=== PATIENT | female | born 1970 | race Hispanic/Latino ===

== ENCOUNTER 2018-07-15 08:00 | Emergency (ER) | payer MEDICAID, OTHER ==
[2018-07-15 08:11] VITALS: O2SAT 96
--- NOTE | 2018-07-15 08:42 | C.PDOC ---
History Of Present Illness 47 year old female with PMHx of asthma presents to the ED complaining of sore throat, nasal congestion, and cough. Denies any fever, chills, ear pain, n/v/d, or any other associated symptoms. Reports using her inhaler at home with no relief. Time Seen by Provider: 07/15/18 08:10 Chief Complaint (Nursing): Cough, Cold, Congestion History Per: Patient History/Exam Limitations: no limitations Current Symptoms Are (Timing): Still Present Location Of Pain: Throat Associated Symptoms: Sore Throat, Cough, Nasal Congestion. denies: Fever, Chills Ear Symptoms: Bilateral: None Severity: Mild Past Medical History Reviewed: Historical Data, Nursing Documentation, Vital Signs Vital Signs: Last Vital Signs Temp 97.6 F 07/15/18 08:07 Pulse 84 07/15/18 08:07 Resp 18 07/15/18 08:07 BP 122/83 07/15/18 08:07 Pulse Ox 96 07/15/18 08:07 - Medical History PMH: Asthma, HTN, Seizures Denies: Diabetes, Hepatitis, HIV, Sexually Transmitted Disease Surgical History: No Surg Hx - [facility] Procedures DETOXIFICATION SERVICES FOR SUBSTANCE ABUSE TREATMENT (07/04/18) GROUP UTILITY MECHANIC SUPERVISOR FOR SUBSTANCE ABUSE TREATMENT, PSYCHOEDUCATION (07/04/18) GROUP UTILITY MECHANIC SUPERVISOR FOR SUBSTANCE ABUSE, COGNITIVE BEHAVIORAL (07/04/18) GROUP PSYCHOTHERAPY (07/04/18) INDIV PSYCHOTHERAPY FOR SUBSTANCE ABUSE TREATMENT, SUPPORT (07/04/18) INDIV PSYCHOTHERAPY FOR SUBSTANCE ABUSE, COGNITIV BEHAVIORAL (07/04/18) INDIV PSYCHOTHERAPY FOR SUBSTANCE ABUSE, PSYCHOEDUCATION (07/04/18) INDIVIDUAL PSYCHOTHERAPY, COGNITIVE-BEHAVIORAL (07/04/18) INDIVIDUAL PSYCHOTHERAPY, SUPPORTIVE (07/04/18) Family History: States: No Known Family Hx - Social History Hx Alcohol Use: No (denied) Hx Substance Use: Yes (heroin) - Immunization History Hx Tetanus Toxoid Vaccination: No Hx Influenza Vaccination: No Hx Pneumococcal Vaccination: No Review Of Systems Except As Marked, All Systems Reviewed And Found Negative. Constitutional: Negative for: Fever, Chills ENT: Positive for: Nose Congestion, Throat Pain Respiratory: Positive for: Cough, Wheezing Physical Exam - Physical Exam Appears: Non-toxic Skin: Warm, Dry, No Rash Head: Normacephalic Eye(s): bilateral: Normal Inspection Ear(s): Bilateral: Normal Nose: Normal Oral Mucosa: Moist Throat: Erythema, No Exudate Neck: Normal ROM, Supple Chest: Symmetrical Cardiovascular: Rhythm Regular Respiratory: No Rales, No Rhonchi, Wheezing (expiratory wheezing b/l) Gastrointestinal/Abdominal: Soft, No Tenderness Extremity: Normal ROM Neurological/Psych: Oriented x3, Normal Speech Gait: Steady ED Course And Treatment - Laboratory Results Urine POC: Negative O2 Sat by Pulse Oximetry: 96 (RA) Pulse Ox Interpretation: Normal - Radiology CXR: Interpreted by Me CXR Interpretation: Yes: No Acute Disease Progress Note: Treated with duoneb x 3 and prednisone 60 mg PO. On re- evaluation lungs few wheeze feeling better, in no distress Reassessment Condition: Improved Medical Decision Making Medical Decision Making: Plan - CXR - Neb treatment - Prednisone 60mg PO Disposition Counseled Patient/Family Regarding: Studies Performed, Diagnosis, Need For Followup, Rx Given - Disposition Referrals: [facility] [Outside] [facility] [Outside] Disposition: HOSPITALIZED Disposition Time: 10:00 Condition: STABLE Additional Instructions: Follow up with PMD or clinic fopr further evaluation Prescriptions: Albuterol HFA [Ventolin HFA 90 mcg/actuation (8 g)] 2 puff IH [id number] PRN #1 unit PRN Reason: Shortness Of Breath Prednisone [Deltasone] 40 mg PO DAILY #8 tablet Instructions: Upper Respiratory Infection (ED) Forms: [employer] (Barbadian) - POA Present On Arrival: None - Clinical Impression Clinical Impression: Upper respiratory infection, Asthma attack - PA / GANG HEAD SAW OPERATOR / Resident Statement MD/DO has reviewed & agrees with the documentation as recorded. - Scribe Statement The provider has reviewed the documentation as recorded by the Scribe Katerin Adkins All medical record entries made by the Brandonibdayron were at my direction and personally dictated by me. I have reviewed the chart and agree that the record accurately reflects my personal performance of the history, physical exam, medical decision making, and the department course for this patient. I have also personally directed, reviewed, and agree with the discharge instructions and disposition.
[2018-07-15] MEDS: Albuterol-Ipratrop 3 mg / 0.5 (3 ml) UD IH SCH (09:51)
--- NOTE | 2018-07-15 10:06 | RAD ---
Date of service: 07/15/2018 HISTORY: SOB COMPARISON: No prior. TECHNIQUE: Chest PA and lateral FINDINGS: LUNGS: No active pulmonary disease. PLEURA: No significant pleural effusion identified. No pneumothorax apparent. CARDIOVASCULAR: No significant aortic atherosclerotic calcification present. Normal cardiac size. No pulmonary vascular congestion. OSSEOUS STRUCTURES: Minor multilevel degenerative spondylosis of the thoracic spine. VISUALIZED UPPER ABDOMEN: Normal. OTHER FINDINGS: In situ bilateral breast implants. IMPRESSION: No active disease.
[2018-07-15 10:18] VITALS: BP 118/83; PULSE 95; RESP 20; TEMP 97.7
== END 2018-07-15 10:18 | disposition home or self-care (01) ==
LOC: C.ER 08:00
DX: J45.909 Unspecified asthma, uncomplicated (principal); J06.9 Acute upper respiratory infection, unspecified; I10 Essential (primary) hypertension

== ENCOUNTER 2018-07-16 02:03 | Emergency (ER) | payer MEDICAID, OTHER ==
[2018-07-16] MEDS ORDERED: Albuterol-Ipratrop 3 mg / 0.5 (3 ml) UD ONE ×2 (02:11→02:24)
--- NOTE | 2018-07-16 02:21 | C.PDOC ---
History Of Present Illness 47 year old female presents to the ED c/o SOB and wheezing. Patient was seen at the ED yesterday for similar complaints, however she states symptoms today worse due to some emotional distress. Patient reports she was kicked out of her house. Patient denies fever, chills,sore throat, CP, palpitations, nausea, vomit, diarrhea, recent travel, sick contacts. Time Seen by Provider: 07/16/18 02:21 Chief Complaint (Nursing): Shortness Of Breath History Per: Patient History/Exam Limitations: no limitations Onset/Duration Of Symptoms: Days Current Symptoms Are (Timing): Still Present Initiating Event: Upper Respiratory Illness, Emotionaly Upset Quality: "Pain" Current Respiratory Medications: See Home Med List Reports Recently: Seen In ED (07/15/18) Recent travel outside of the [place]: No Additional History Per: Patient Past Medical History Reviewed: Historical Data, Nursing Documentation, Vital Signs Vital Signs: Last Vital Signs Temp 98.2 F 07/16/18 02:13 Pulse 98 H 07/16/18 02:13 Resp 20 07/16/18 02:13 BP 140/90 07/16/18 02:13 Pulse Ox 98 07/16/18 02:13 - Medical History PMH: Asthma, HTN, Seizures Denies: Diabetes, Hepatitis, HIV, Sexually Transmitted Disease Surgical History: No Surg Hx - [facility] Procedures DETOXIFICATION SERVICES FOR SUBSTANCE ABUSE TREATMENT (07/04/18) GROUP REPORTING LEAD FOR SUBSTANCE ABUSE TREATMENT, PSYCHOEDUCATION (07/04/18) GROUP REPORTING LEAD FOR SUBSTANCE ABUSE, COGNITIVE BEHAVIORAL (07/04/18) GROUP PSYCHOTHERAPY (07/04/18) INDIV PSYCHOTHERAPY FOR SUBSTANCE ABUSE TREATMENT, SUPPORT (07/04/18) INDIV PSYCHOTHERAPY FOR SUBSTANCE ABUSE, COGNITIV BEHAVIORAL (07/04/18) INDIV PSYCHOTHERAPY FOR SUBSTANCE ABUSE, PSYCHOEDUCATION (07/04/18) INDIVIDUAL PSYCHOTHERAPY, COGNITIVE-BEHAVIORAL (07/04/18) INDIVIDUAL PSYCHOTHERAPY, SUPPORTIVE (07/04/18) Family History: States: Unknown Family Hx - Social History Hx Alcohol Use: No (denied) Hx Substance Use: Yes (heroin) - Immunization History Hx Tetanus Toxoid Vaccination: No Hx Influenza Vaccination: No Hx Pneumococcal Vaccination: No Review Of Systems Constitutional: Negative for: Fever, Chills Cardiovascular: Negative for: Chest Pain Respiratory: Positive for: Shortness of Breath, Wheezing. Negative for: Cough, Sputum Gastrointestinal: Negative for: Nausea, Vomiting, Abdominal Pain Skin: Negative for: Rash Neurological: Negative for: Weakness, Numbness, Headache, Dizziness Physical Exam - Physical Exam Appears: Non-toxic, No Acute Distress Skin: Warm, Dry Head: Normacephalic Eye(s): bilateral: Normal Inspection Oral Mucosa: Moist Throat: No Erythema, No Exudate Neck: Supple Chest: Symmetrical Cardiovascular: Rhythm Regular Respiratory: No Rales, No Rhonchi, Wheezing (scattered), Other (speaking in complete sentences) Gastrointestinal/Abdominal: Soft, No Tenderness, No Guarding, No Rebound Extremity: Bilateral: Atraumatic, Normal Color And Temperature, Normal ROM Neurological/Psych: Oriented x3, Normal Speech, Normal Cognition Gait: Steady ED Course And Treatment O2 Sat by Pulse Oximetry: 98 (ON RA) Pulse Ox Interpretation: Normal Progress Note: Plan: - Duoneb. - Prednisone 40 mg PO Reevaluation Time: 05:11 Reassessment Condition: Improved Disposition Counseled Patient/Family Regarding: Studies Performed, Diagnosis, Need For Followup - Disposition Disposition: HOME/ ROUTINE Disposition Time: 02:21 Condition: FAIR Additional Instructions: Please continue your medications Instructions: Asthma, Adult (DC) Forms: [employer] (Turkish) - Clinical Impression Clinical Impression: Asthma exacerbation, Anxiety - Scribe Statement The provider has reviewed the documentation as recorded by the Scribe David Mckeon All medical record entries made by the Scribe were at my direction and personally dictated by me. I have reviewed the chart and agree that the record accurately reflects my personal performance of the history, physical exam, medical decision making, and the department course for this patient. I have also personally directed, reviewed, and agree with the discharge instructions and disposition.
[2018-07-16] MEDS: Albuterol-Ipratrop 3 mg / 0.5 (3 ml) UD IH SCH ×3 (02:25→02:46)
[2018-07-16 06:17] VITALS: BP 130/89; PULSE 86; RESP 14; TEMP 97.9; O2SAT 96
== END 2018-07-16 06:27 | disposition home or self-care (01) ==
LOC: C.ER 02:03
DX: J45.901 Unspecified asthma with (acute) exacerbation (principal); F41.9 Anxiety disorder, unspecified

== ENCOUNTER 2018-09-26 23:48 | Emergency (ER) | payer BC, OTHER ==
--- NOTE | 2018-09-27 00:26 | C.PDOC ---
History Of Present Illness 48 year old female with a Hx of asthma with no previous admissions or intubations presents with asthma exacerbation and SOB this past week after running out of her inhaler. Patient states she has difficulty walking since she feels SOB secondary to asthma. Denies fever, chills, night sweats, chest pain, or leg swelling. Time Seen by Provider: 09/27/18 00:26 Chief Complaint (Nursing): Shortness Of Breath History Per: Patient History/Exam Limitations: no limitations Onset/Duration Of Symptoms: Days Current Symptoms Are (Timing): Still Present Current Respiratory Medications: See Home Med List Recent travel outside of the [place]: No Past Medical History Reviewed: Historical Data, Nursing Documentation, Vital Signs Vital Signs: Last Vital Signs Temp 98.0 F 09/26/18 23:59 Pulse 83 09/26/18 23:59 Resp 20 09/26/18 23:59 BP 116/74 09/26/18 23:59 Pulse Ox 93 L 09/26/18 23:59 - Medical History PMH: Anxiety, Asthma, Depression, HTN, Post Traumatic Stress Disorder, Seizures Denies: Diabetes, Hepatitis, HIV, Sexually Transmitted Disease - [facility] DETOXIFICATION SERVICES FOR SUBSTANCE ABUSE TREATMENT (07/04/18) GROUP MOLDING SUPERVISOR FOR SUBSTANCE ABUSE TREATMENT, PSYCHOEDUCATION (07/04/18) GROUP MOLDING SUPERVISOR FOR SUBSTANCE ABUSE, COGNITIVE BEHAVIORAL (07/04/18) GROUP PSYCHOTHERAPY (07/04/18) INDIV PSYCHOTHERAPY FOR SUBSTANCE ABUSE TREATMENT, SUPPORT (07/04/18) INDIV PSYCHOTHERAPY FOR SUBSTANCE ABUSE, COGNITIV BEHAVIORAL (07/04/18) INDIV PSYCHOTHERAPY FOR SUBSTANCE ABUSE, PSYCHOEDUCATION (07/04/18) INDIVIDUAL PSYCHOTHERAPY, COGNITIVE-BEHAVIORAL (07/04/18) INDIVIDUAL PSYCHOTHERAPY, SUPPORTIVE (07/04/18) Family History: States: Unknown Family Hx - Social History Hx Alcohol Use: No (denied) Hx Substance Use: Yes (heroin) - Immunization History Hx Tetanus Toxoid Vaccination: No Hx Influenza Vaccination: No Hx Pneumococcal Vaccination: No Review Of Systems Except As Marked, All Systems Reviewed And Found Negative. Respiratory: Positive for: Other (Asthma) Physical Exam - Physical Exam Appears: Non-toxic Skin: Normal Color, Warm, Dry Head: Atraumatic, Normacephalic Eye(s): bilateral: Normal Inspection Oral Mucosa: Moist Neck: Normal, Supple Chest: Symmetrical, No Tenderness Cardiovascular: Rhythm Regular Respiratory: No Accessory Muscle Use, No Rales, No Rhonchi, Wheezing (Bilateral) Gastrointestinal/Abdominal: Soft, No Tenderness Neurological/Psych: Oriented x3, Normal Speech ED Course And Treatment - Laboratory Results Result Diagrams: 09/27/18 00:56 09/27/18 00:56 O2 Sat by Pulse Oximetry: 93 (room air) Medical Decision Making Medical Decision Making: Well appearing 48 yr old F w/ hx of asthma p/w mild asthma exacerbation. speaking in full sentances w/ out distress. Mild wheezes on exam. in NAD. No leg swelling or hx of blood clots. No fever, chills or night sweats . Impression: Asthma 0300 Labs unremarkable lungs cta b/l speaking in full sentences, NAD given inhaler script and meds for home pt agreeable to plan. Also given return indications and followup Disposition - Disposition Referrals: Angela Kolb MD [Staff Provider] - [employer] [facility] [Outside] [facility] [Outside] [facility] [Outside] Disposition: HOME/ ROUTINE Disposition Time: 03:00 Condition: GOOD Prescriptions: RX: Albuterol HFA [Ventolin HFA 90 mcg/actuation (8 g)] 1 puff IH Q3H PRN #1 inhaler PRN Reason: Shortness Of Breath predniSONE [Prednisone] 40 mg PO DAILY 5 Days #10 tab Instructions: Asthma in Adults, Asthma, Adult (DC), Avoiding Asthma Triggers Forms: [employer] (Serbian) - Clinical Impression Clinical Impression: Asthma attack - Scribe Statement The provider has reviewed the documentation as recorded by the Scribe Luciano Chavis All medical record entries made by the Scribe were at my direction and personally dictated by me. I have reviewed the chart and agree that the record accurately reflects my personal performance of the history, physical exam, medical decision making, and the department course for this patient. I have also personally directed, reviewed, and agree with the discharge instructions and disposition.
[2018-09-27] MEDS ORDERED: Albuterol-Ipratrop 3 mg / 0.5 (3 ml) UD ONE ×2 (00:33→01:49)
[2018-09-27] MEDS: Albuterol-Ipratrop 3 mg / 0.5 (3 ml) UD INH PRN ×2 (00:35→01:48)
[2018-09-27] MEDS ORDERED: MethylPREDNISolone 40 mg Vial IVP STA (00:43)
[2018-09-27 00:59] LABS: BASO # 0.1 K/uL (0.0-0.2); EOS # 1.5 K/uL (0.0-0.7); EOS % 14.5 % (0.0-4.0); HEMOGLOBIN 14.2 g/dL (11.0-16.0); LYMPH # 4.2 K/uL (1.0-4.3); LYMPH % 41.5 % (20.0-40.0); MEAN CELL VOLUME 89.7 fL (81.0-99.0); MEAN CORPUSCULAR HEMOGLOBIN 29.3 pg (27.0-31.0); MEAN CORPUSCULAR HGB CONC 32.7 g/dL (33.0-37.0); MEAN PLATELET VOLUME 7.4 fL (7.2-11.7); MONO # 0.6 K/uL (0.0-0.8); MONO % 5.8 % (0.0-10.0); NEUT # 3.7 K/uL (1.8-7.0); NEUT % 37.2 % (50.0-75.0); RBC 4.86 Mil/uL (3.80-5.20); RED CELL DISTRIBUTION WIDTH 14.3 % (11.5-14.5); WHITE BLOOD COUNT 10.1 K/uL (4.8-10.8)
[2018-09-27 01:15] LABS: ALB/GLOB RATIO 1.1 (1.0-2.1); ALBUMIN 3.8 g/dL (3.5-5.0); ALT/SGPT 13 U/L (9-52); AST/SGOT 21 U/L (14-36); BLOOD UREA NITROGEN 17 mg/dL (7-17); CALCIUM 7.9 mg/dl (8.6-10.4); GFR NON-AFRICAN AMERICAN > 60
[2018-09-27 02:15] VITALS: BP 107/63; PULSE 84; RESP 16; TEMP 98.3
[2018-09-27 03:52] VITALS: O2SAT 93
== END 2018-09-27 03:58 | disposition home or self-care (01) ==
LOC: C.ER 23:48
DX: J45.909 Unspecified asthma, uncomplicated (principal)
CPT/HCPCS: 80053; 85025; 96374; 99283; J2920

== ENCOUNTER 2018-10-11 22:19 | Emergency (ER) | payer BC ==
[2018-10-11] MEDS ORDERED: Albuterol-Ipratrop 3 mg / 0.5 (3 ml) UD ONE (22:36)
[2018-10-11] MEDS ORDERED: Albuterol-Ipratrop 3 mg / 0.5 (3 ml) UD INH STA ×3 (22:46→22:47)
[2018-10-11] MEDS ORDERED: Sodium Chloride 0.9% 1,000 ML IV ONE (22:47)
--- NOTE | 2018-10-11 22:48 | C.PDOC ---
History Of Present Illness 48 year old female, whose past medical history includes asthma, presents to the ED for evaluation of cough and congestion which began around two days ago. Patient reports her cough is occasionally productive of white sputum. She states she ran out of her asthma medications a couple days ago. She denies fever, chills. Chief Complaint (Nursing): Shortness Of Breath History Per: Patient History/Exam Limitations: no limitations Onset/Duration Of Symptoms: Days (2) Current Symptoms Are (Timing): Still Present Current Respiratory Medications: See Home Med List Associated Symptoms: Productive Cough (white sputum ). denies: Fever, Chills Past Medical History Reviewed: Historical Data, Nursing Documentation, Vital Signs Vital Signs: Last Vital Signs Temp 97.5 F L 10/11/18 22:25 Pulse 90 10/11/18 22:25 Resp 18 10/11/18 22:25 BP 152/82 H 10/11/18 22:25 Pulse Ox 94 L 10/11/18 22:25 - Medical History PMH: Anxiety, Asthma, Depression, HTN, Post Traumatic Stress Disorder, Seizures Denies: Diabetes, Hepatitis, HIV, Sexually Transmitted Disease Surgical History: No Surg Hx - [facility] Procedures DETOXIFICATION SERVICES FOR SUBSTANCE ABUSE TREATMENT (07/04/18) GROUP CUT OUT PRESS OPERATOR FOR SUBSTANCE ABUSE TREATMENT, PSYCHOEDUCATION (07/04/18) GROUP CUT OUT PRESS OPERATOR FOR SUBSTANCE ABUSE, COGNITIVE BEHAVIORAL (07/04/18) GROUP PSYCHOTHERAPY (07/04/18) INDIV PSYCHOTHERAPY FOR SUBSTANCE ABUSE TREATMENT, SUPPORT (07/04/18) INDIV PSYCHOTHERAPY FOR SUBSTANCE ABUSE, COGNITIV BEHAVIORAL (07/04/18) INDIV PSYCHOTHERAPY FOR SUBSTANCE ABUSE, PSYCHOEDUCATION (07/04/18) INDIVIDUAL PSYCHOTHERAPY, COGNITIVE-BEHAVIORAL (07/04/18) INDIVIDUAL PSYCHOTHERAPY, SUPPORTIVE (07/04/18) Family History: States: Unknown Family Hx - Social History Hx Alcohol Use: No (denied) Hx Substance Use: Yes (heroin (sniff)) - Immunization History Hx Tetanus Toxoid Vaccination: No Hx Influenza Vaccination: No Hx Pneumococcal Vaccination: No Review Of Systems Constitutional: Negative for: Fever, Chills ENT: Positive for: Nose Congestion Respiratory: Positive for: Cough, Sputum (white ) Physical Exam - Physical Exam Appears: Non-toxic, No Acute Distress Skin: Normal Color, Warm, Dry Head: Atraumatic, Normacephalic Eye(s): bilateral: Normal Inspection Oral Mucosa: Moist Neck: Supple Chest: Symmetrical, No Deformity, No Tenderness Cardiovascular: Rhythm Regular, No Murmur Respiratory: No Rales, Rhonchi, Wheezing, Other (slight dyspnea noted ) Extremity: Normal ROM, Capillary Refill (less than 2 seconds ) Neurological/Psych: Oriented x3, Normal Speech, Normal Cognition ED Course And Treatment - Laboratory Results Result Diagrams: 10/11/18 23:36 10/11/18 23:36 O2 Sat by Pulse Oximetry: 94 - Radiology CXR: Interpreted by Me, Viewed By Me CXR Interpretation: Yes: No Acute Disease, Other (normal chest film). No: Infiltrates Progress Note: Bloodwork, CXR, EKG ordered and reviewed. Albuterol INH and IV Fluids given. Disposition Counseled Patient/Family Regarding: Diagnosis - Disposition Referrals: Non [facility] Provider, [Primary Care Provider] - [facility] [Outside] Disposition: HOME/ ROUTINE Disposition Time: 01:56 Condition: STABLE Prescriptions: Albuterol HFA [Ventolin HFA 90 mcg/actuation (8 g)] 2 puff IH [id number] #60 puff Methylprednisolone [Medrol Dose Pack (21 tabs)] 4 mg PO DAILY #21 mg Instructions: Asthma, Adult (DC) Forms: [employer] (Latvian) - POA Present On Arrival: None - Clinical Impression Clinical Impression: Asthma attack - Scribe Statement The provider has reviewed the documentation as recorded by the Scribe (Marychuy De La O) Provider Attestation: All medical record entries made by the Scribe were at my direction and personally dictated by me. I have reviewed the chart and agree that the record accurately reflects my personal performance of the history, physical exam, medical decision making, and the department course for this patient. I have also personally directed, reviewed, and agree with the discharge instructions and disposition.
[2018-10-11 23:40] LABS: BASO # 0.1 K/uL (0.0-0.2); BASO % 1.3 % (0.0-2.0); EOS # 1.4 K/uL (0.0-0.7); EOS % 16.8 % (0.0-4.0); HEMOGLOBIN 14.8 g/dL (11.0-16.0); LYMPH # 2.1 K/uL (1.0-4.3); LYMPH % 25.5 % (20.0-40.0); MEAN CELL VOLUME 91.2 fL (81.0-99.0); MEAN CORPUSCULAR HGB CONC 32.9 g/dL (33.0-37.0); MEAN PLATELET VOLUME 7.4 fL (7.2-11.7); MONO # 0.5 K/uL (0.0-0.8); MONO % 5.6 % (0.0-10.0); NEUT # 4.3 K/uL (1.8-7.0); NEUT % 50.8 % (50.0-75.0); NRBC % 0.1 % (0.0-2.0); RBC 4.94 Mil/uL (3.80-5.20); RED CELL DISTRIBUTION WIDTH 14.3 % (11.5-14.5); WHITE BLOOD COUNT 8.4 K/uL (4.8-10.8)
[2018-10-11 23:53] LABS: ALB/GLOB RATIO 1.1 (1.0-2.1); ALBUMIN 3.9 g/dL (3.5-5.0); ALT/SGPT 9 U/L (9-52); AST/SGOT 26 U/L (14-36); BLOOD UREA NITROGEN 16 mg/dL (7-17); CALCIUM 8.4 mg/dl (8.6-10.4); GFR NON-AFRICAN AMERICAN > 60
[2018-10-12 01:01] VITALS: RESP 19
[2018-10-12] MEDS ORDERED: Albuterol-Ipratrop 3 mg / 0.5 (3 ml) UD INH STA (01:33)
[2018-10-12] MEDS ORDERED: Albuterol-Ipratrop 3 mg / 0.5 (3 ml) UD ONE (02:15)
[2018-10-12 02:29] VITALS: BP 142/89; PULSE 91; TEMP 98; O2SAT 95
--- NOTE | 2018-10-12 10:26 | RAD ---
HISTORY: SOB COMPARISON: Chest x-ray performed 07/15/18 TECHNIQUE: Chest PA and lateral FINDINGS: LUNGS: Hyperinflation. No focal consolidation. Tiny probable calcified granuloma, right midlung zone. Please note that chest x-ray has limited sensitivity for the detection of pulmonary masses. PLEURA: No significant pleural effusion identified. No definite pneumothorax . CARDIOVASCULAR: Heart size appears within normal limits. No atherosclerotic calcification present. OSSEOUS STRUCTURES: Mild degenerative changes. VISUALIZED UPPER ABDOMEN: Unremarkable. OTHER FINDINGS: Bilateral breast implants. IMPRESSION: Hyperinflation. No focal consolidation. Tiny probable calcified granuloma, right midlung zone.
== END 2018-10-12 02:28 | disposition home or self-care (01) ==
LOC: SUPCPDRO 22:19 → C.ER 22:19
DX: J45.909 Unspecified asthma, uncomplicated (principal); I10 Essential (primary) hypertension

== ENCOUNTER 2018-11-21 02:31 | Emergency (ER) | payer SELFPAY ==
[2018-11-21] MEDS ORDERED: Albuterol-Ipratrop 3 mg / 0.5 (3 ml) UD ONE ×2 (02:44→03:26)
[2018-11-21] MEDS: Albuterol-Ipratrop 3 mg / 0.5 (3 ml) UD IH SCH (03:41)
[2018-11-21 05:02] VITALS: BP 102/64; PULSE 87; RESP 16; TEMP 97.9; O2SAT 94
--- NOTE | 2018-11-21 05:07 | C.PDOC ---
History Of Present Illness 48 year old female with a history of asthma presents to the emergency department with complaints of wheezing and cough for the last few days. Patient denies fever, chills, nausea, vomiting, and states that she has never been intubated. As per triage, patient ran out of her inhaler. Patient reported feeling better after receiving breathing treatment at triage. Time Seen by Provider: 11/21/18 03:00 Chief Complaint (Nursing): Shortness Of Breath History Per: Patient History/Exam Limitations: no limitations Onset/Duration Of Symptoms: Days Current Symptoms Are (Timing): Still Present Associated Symptoms: Other (cough, wheezing). denies: Fever, Chills Past Medical History Reviewed: Historical Data, Nursing Documentation, Vital Signs Vital Signs: Last Vital Signs Temp 97.9 F 11/21/18 05:02 Pulse 87 11/21/18 05:02 Resp 16 11/21/18 05:02 BP 102/64 11/21/18 05:02 Pulse Ox 94 L 11/21/18 05:02 - Medical History PMH: Anxiety, Asthma, Depression, HTN, Post Traumatic Stress Disorder, Seizures Denies: Diabetes, Hepatitis, HIV, Sexually Transmitted Disease Surgical History: No Surg Hx - [facility] Procedures DETOXIFICATION SERVICES FOR SUBSTANCE ABUSE TREATMENT (07/04/18) GROUP EXCELLENCE LEADER FOR SUBSTANCE ABUSE TREATMENT, PSYCHOEDUCATION (07/04/18) GROUP EXCELLENCE LEADER FOR SUBSTANCE ABUSE, COGNITIVE BEHAVIORAL (07/04/18) GROUP PSYCHOTHERAPY (07/04/18) INDIV PSYCHOTHERAPY FOR SUBSTANCE ABUSE TREATMENT, SUPPORT (07/04/18) INDIV PSYCHOTHERAPY FOR SUBSTANCE ABUSE, COGNITIV BEHAVIORAL (07/04/18) INDIV PSYCHOTHERAPY FOR SUBSTANCE ABUSE, PSYCHOEDUCATION (07/04/18) INDIVIDUAL PSYCHOTHERAPY, COGNITIVE-BEHAVIORAL (07/04/18) INDIVIDUAL PSYCHOTHERAPY, SUPPORTIVE (07/04/18) Family History: States: No Known Family Hx - Social History Hx Alcohol Use: No (denied) Hx Substance Use: Yes (heroin (sniff)) - Immunization History Hx Tetanus Toxoid Vaccination: No Hx Influenza Vaccination: No Hx Pneumococcal Vaccination: No Review Of Systems Except As Marked, All Systems Reviewed And Found Negative. Constitutional: Negative for: Fever, Chills Cardiovascular: Negative for: Chest Pain Respiratory: Positive for: Cough. Negative for: Shortness of Breath, Wheezing Gastrointestinal: Negative for: Nausea, Vomiting, Abdominal Pain, Diarrhea Physical Exam - Physical Exam Appears: Non-toxic, No Acute Distress Skin: Normal Color, Warm, Dry Head: Atraumatic, Normacephalic Eye(s): bilateral: Normal Inspection, PERRL, EOMI Nose: Normal Oral Mucosa: Moist Neck: Normal, Supple Chest: Symmetrical, No Tenderness Cardiovascular: Rhythm Regular, No Murmur Respiratory: No Rales, Rhonchi (diffuse), Wheezing (expiratory), Other (speaking full sentences) Gastrointestinal/Abdominal: Soft, No Tenderness, No Guarding, No Rebound Extremity: Normal ROM Neurological/Psych: Oriented x3, Normal Speech, Normal Cognition ED Course And Treatment O2 Sat by Pulse Oximetry: 94 (RA) Pulse Ox Interpretation: Abnormal Medical Decision Making Medical Decision Making: Plan: Albuterol Prednisone Disposition Counseled Patient/Family Regarding: Diagnosis, Need For Followup - Disposition [facility] [Outside] Disposition: HOME/ ROUTINE Disposition Time: 05:05 Condition: IMPROVED Additional Instructions: WILMER KEITH, thank you for letting us take care of you today. Your provider was Tari Ayoub MD and you were treated for ASTHMA. The emergency medical care yo u received today was directed at your acute symptoms. If you were prescribed any medication, please fill it and take as directed. It may take several days for your symptoms to resolve. Return to the Emergency Department if your symptoms worsen, do not improve, or if you have any other problems. Please contact your doctor or call one of the physicians/clinics you have been referred to that are listed on the Patient Visit Information form that is included in your discharge packet. Bring any paperwork you were given at discharge with you along with any medications you are taking to your follow up visit. Our treatment cannot replace ongoing medical care by a primary care provider outside of the emergency department. Thank you for allowing the [facility] team to be part of your care today. Prescriptions: predniSONE [Prednisone] 40 mg PO DAILY #10 tab Instructions: Asthma, Adult (DC) Forms: [employer] (Mozambican), General Discharge Instructions - Clinical Impression Clinical Impression: Asthma exacerbation - Scribe Statement The provider has reviewed the documentation as recorded by the Scribe (Jovan Luz) Provider Attestation: All medical record entries made by the Scribe were at my direction and per sonally dictated by me. I have reviewed the chart and agree that the record accurately reflects my personal performance of the history, physical exam, medical decision making, and the department course for this patient. I have also personally directed, reviewed, and agree with the discharge instructions and disposition.
== END 2018-11-21 05:17 | disposition home or self-care (01) ==
LOC: C.ER 02:31 → SUPCPDRO 02:31 → C.ER 05:17
DX: J45.901 Unspecified asthma with (acute) exacerbation (principal)

== ENCOUNTER 2018-12-03 21:29 | Emergency (ER) | payer SELFPAY ==
[2018-12-03] MEDS ORDERED: Albuterol-Ipratrop 3 mg / 0.5 (3 ml) UD ONE ×2 (21:41→22:30)
[2018-12-03] MEDS ORDERED: Albuterol-Ipratrop 3 mg / 0.5 (3 ml) UD IH STA ×3 (22:11→22:12)
[2018-12-03] MEDS ORDERED: MethylPREDNISolone 40 mg Vial IVP STA (22:11)
--- NOTE | 2018-12-03 22:17 | C.PDOC ---
History Of Present Illness 48 y/o F c PMHx asthma p/w shortness of breath x 1 day. Reports wheezing, feels same as previous asthma attacks, states has no more pump at home. Denies fever, chills, recent travel, sick contacts. Time Seen by Provider: 12/03/18 22:00 Chief Complaint (Nursing): Shortness Of Breath Past Medical History Vital Signs: Last Vital Signs Temp 98 F 12/03/18 21:43 Pulse 98 H 12/03/18 21:43 Resp 28 H 12/03/18 21:43 BP 110/80 12/03/18 21:43 Pulse Ox 96 12/03/18 21:43 - Medical History PMH: Anxiety, Asthma, Depression, HTN, Post Traumatic Stress Disorder, Seizures Denies: Diabetes, Hepatitis, HIV, Sexually Transmitted Disease - [facility] Procedures DETOXIFICATION SERVICES FOR SUBSTANCE ABUSE TREATMENT (07/04/18) GROUP OFFSET PRESS OPERATOR FOR SUBSTANCE ABUSE TREATMENT, PSYCHOEDUCATION (07/04/18) GROUP OFFSET PRESS OPERATOR FOR SUBSTANCE ABUSE, COGNITIVE BEHAVIORAL (07/04/18) GROUP PSYCHOTHERAPY (07/04/18) INDIV PSYCHOTHERAPY FOR SUBSTANCE ABUSE TREATMENT, SUPPORT (07/04/18) INDIV PSYCHOTHERAPY FOR SUBSTANCE ABUSE, COGNITIV BEHAVIORAL (07/04/18) INDIV PSYCHOTHERAPY FOR SUBSTANCE ABUSE, PSYCHOEDUCATION (07/04/18) INDIVIDUAL PSYCHOTHERAPY, COGNITIVE-BEHAVIORAL (07/04/18) INDIVIDUAL PSYCHOTHERAPY, SUPPORTIVE (07/04/18) Family History: States: Unknown Family Hx - Social History Hx Alcohol Use: No (denied) Hx Substance Use: Yes (heroin (sniff)) - Immunization History Hx Tetanus Toxoid Vaccination: No Hx Influenza Vaccination: No Hx Pneumococcal Vaccination: No Review Of Systems Except As Marked, All Systems Reviewed And Found Negative. Constitutional: Negative for: Fever Cardiovascular: Negative for: Chest Pain Physical Exam - Physical Exam Additional Physical Exam Comments: Gen: NAD Head: NC Eyes: No icterus ENT: MMM Neck: Supple Chest: No tenderness CV: Reg rate Lungs: Inspiratory and expiratory wheezing diffusely Abd: Soft, NT Back: No CVA tenderness Skin: No rash Neuro: Alert Extremities: No edema ED Course And Treatment - Laboratory Results Result Diagrams: 12/03/18 22:42 12/03/18 22:42 O2 Sat by Pulse Oximetry: 96 Medical Decision Making Medical Decision Making: CXR no pneumonia. Offered admission but patient refused. Does feel better. Discharged, continue s teroids and inhaler, instructed to return to ED for worsening breathing. Disposition - Disposition Referrals: [facility] at [facility] [Outside] Disposition: HOME/ ROUTINE Disposition Time: 00:21 Condition: FAIR Prescriptions: Albuterol HFA [Ventolin HFA 90 mcg/actuation (8 g)] 2 puff IH Q6 #1 inhaler Prednisone [Deltasone] 3 tab PO DAILY #12 tablet Instructions: Asthma in Adults Forms: [facility] (Belarusian) - Clinical Impression Clinical Impression: Asthma attack
[2018-12-03 22:48] LABS: BASO # 0.1 K/uL (0.0-0.2); BASO % 1.1 % (0.0-2.0); EOS # 2.2 K/uL (0.0-0.7); EOS % 17.1 % (0.0-4.0); HEMOGLOBIN 15.5 g/dL (11.0-16.0); LYMPH # 3.3 K/uL (1.0-4.3); LYMPH % 25.8 % (20.0-40.0); MEAN CELL VOLUME 89.5 fL (81.0-99.0); MEAN CORPUSCULAR HEMOGLOBIN 29.4 pg (27.0-31.0); MEAN CORPUSCULAR HGB CONC 32.9 g/dL (33.0-37.0); MEAN PLATELET VOLUME 7.3 fL (7.2-11.7); MONO # 0.7 K/uL (0.0-0.8); MONO % 5.7 % (0.0-10.0); NEUT # 6.5 K/uL (1.8-7.0); NEUT % 50.3 % (50.0-75.0); RBC 5.27 Mil/uL (3.80-5.20); RED CELL DISTRIBUTION WIDTH 14.1 % (11.5-14.5)
[2018-12-03 22:59] LABS: ALB/GLOB RATIO 1.2 (1.0-2.1); ALBUMIN 3.9 g/dL (3.5-5.0); BLOOD UREA NITROGEN 15 mg/dL (7-17); CALCIUM 8.7 mg/dl (8.6-10.4); GFR NON-AFRICAN AMERICAN > 60
[2018-12-03 23:04] LABS: ALT/SGPT 9 U/L (9-52); AST/SGOT 29 U/L (14-36)
[2018-12-04 00:49] VITALS: BP 127/89; PULSE 74; RESP 18; TEMP 98.6; O2SAT 98
--- NOTE | 2018-12-04 11:05 | RAD ---
Date of service: 12/03/2018 HISTORY: wheezing COMPARISON: 10/11/2018. FINDINGS: LUNGS: The lungs are well inflated and clear. PLEURA: No pleural effusions or pneumothorax. CARDIOVASCULAR: The heart is normal in size. No aortic atherosclerotic calcifications present. OSSEOUS STRUCTURES: Within normal limits for the patient's age. VISUALIZED UPPER ABDOMEN: Normal. OTHER FINDINGS: None. IMPRESSION: No active pulmonary disease.
== END 2018-12-04 01:06 | disposition home or self-care (01) ==
LOC: C.ER 21:29
DX: J45.909 Unspecified asthma, uncomplicated (principal)
CPT/HCPCS: 71045; 80053; 83735; 84100; 85025; 96374; 99283; J2920

== ENCOUNTER 2018-12-04 01:19 | Observation (INO) | payer SELFPAY ==
[2018-12-04 01:39] VITALS: RESP 20
--- NOTE | 2018-12-04 01:47 | C.PDOC ---
History Of Present Illness 48 year old female presents complaining of asthma and wheezing. Patient was just seen in the ED and offered admission but refused. When she left patient was still SOB so she reregistered, now agreeable for admission. Time Seen by Provider: 12/04/18 01:22 Chief Complaint (Nursing): Shortness Of Breath History Per: Patient History/Exam Limitations: no limitations Onset/Duration Of Symptoms: Hrs Current Symptoms Are (Timing): Still Present Current Respiratory Medications: See Home Med List Associated Symptoms: Other (Wheezing) Reports Recently: Seen In ED Past Medical History Reviewed: Historical Data, Nursing Documentation, Vital Signs Vital Signs: Last Vital Signs Temp 98.1 F 12/04/18 01:27 Pulse 103 H 12/04/18 01:27 Resp 20 12/04/18 01:36 BP 143/87 12/04/18 01:27 Pulse Ox 94 L 12/04/18 01:27 - Medical History PMH: Anxiety, Asthma, Depression, HTN, Post Traumatic Stress Disorder, Seizures Denies: Diabetes, Hepatitis, HIV, Sexually Transmitted Disease - [facility] Procedures DETOXIFICATION SERVICES FOR SUBSTANCE ABUSE TREATMENT (07/04/18) GROUP WINDING OPERATOR FOR SUBSTANCE ABUSE TREATMENT, PSYCHOEDUCATION (07/04/18) GROUP WINDING OPERATOR FOR SUBSTANCE ABUSE, COGNITIVE BEHAVIORAL (07/04/18) GROUP PSYCHOTHERAPY (07/04/18) INDIV PSYCHOTHERAPY FOR SUBSTANCE ABUSE TREATMENT, SUPPORT (07/04/18) INDIV PSYCHOTHERAPY FOR SUBSTANCE ABUSE, COGNITIV BEHAVIORAL (07/04/18) INDIV PSYCHOTHERAPY FOR SUBSTANCE ABUSE, PSYCHOEDUCATION (07/04/18) INDIVIDUAL PSYCHOTHERAPY, COGNITIVE-BEHAVIORAL (07/04/18) INDIVIDUAL PSYCHOTHERAPY, SUPPORTIVE (07/04/18) Family History: States: Unknown Family Hx - Social History Hx Alcohol Use: No (denied) Hx Substance Use: Yes (heroin (sniff)) - Immunization History Hx Tetanus Toxoid Vaccination: Yes Hx Influenza Vaccination: No Hx Pneumococcal Vaccination: No Review Of Systems Except As Marked, All Systems Reviewed And Found Negative. Constitutional: Negative for: Fever Cardiovascular: Negative for: Chest Pain Physical Exam - Physical Exam Additional Physical Exam Comments: Constitutional: No acute distress. Head: Normocephalic. Atraumatic. Eyes: PERRL. ENT: Moist mucous membranes. Neck: Supple. Cardiovascular: Regular rate. Radial pulse 2+ bilaterally. Chest: No tenderness. Respiratory: Diffuse wheezing. GI: Soft. Nontender. Nondistended. Back: No CVA tenderness. Musculoskeletal: No tenderness or swelling of extremities. Skin: No rash. Neurologic: Alert, no focal deficit. ED Course And Treatment O2 Sat by Pulse Oximetry: 94 (Room air) Pulse Ox Interpretation: Normal Disposition - Disposition Disposition: HOSPITALIZED Disposition Time: 02:02 Condition: FAIR - Clinical Impression Clinical Impression: Asthma exacerbation - Scribe Statement The provider has reviewed the documentation as recorded by the Scribdayron Chavis All medical record entries made by the Christiano were at my direction and personally dictated by me. I have reviewed the chart and agree that the record accurately reflects my personal performance of the history, physical exam, medical decision making, and the department course for this patient. I have also personally directed, reviewed, and agree with the discharge instructions and disposition.
[2018-12-04] MEDS ORDERED: Albuterol-Ipratrop 3 mg / 0.5 (3 ml) UD IH STA (02:42)
[2018-12-04] MEDS ORDERED: Albuterol-Ipratrop 3 mg / 0.5 (3 ml) UD ONE (02:50)
--- NOTE | 2018-12-04 03:08 | CP.PCM.HP ---
<Kylee Chi P - Last Filed: 12/04/18 06:18> History of Present Illness - History of Present Illness History of Present Illness: H&P for Dr. Franco. HPI: 48 year old female with PMHx of asthma, seizure disorder, anxiety, depression and arthritis presents to ED complaining of worsening shortness of breath for the past week. Patient states she ran out of her inhaler after one week of use as she has been needing it frequently. Patient reports cough with moy sputum for one weekd. She also reports hot flashes, dizziness and feeling panicked with the shortness of breath. Denies fever, chills, nausea, vomiting, chest pain, hemoptysis sick contacts, abdominal pain, diarrhea, constipation, syncope. PMHx: asthma, seizure disorder, anxiety, depression and arthritis PSHx: B/l knee surgery Meds: Albuterol INH, additional inhaler patient does not recall name, Zoloft 12.5mg, Tramadol 50mg QD, Keppra 500mg QD Allergies: NKDA FamHx: Father-[place] at 56 SocHx: Denies tobacco and alcohol. Former heroin user. Paints cars for a living. PMD: None Review of Systems: -Gen: + hot flashes, No fever, No chills, No headache, No lethargy, No weakness. -HEENT: + dizziness, No change in vision, No change in hearing, No sore throat, No dysphagia, No nasal congestion, No mucous. -Cardio: No chest pain, No palpitations, No lower extremity edema, No orthopnea. -Resp: + cough, + dyspnea, No hemoptysis, + wheezing, No pain on inspiration. -GI: No abdominal pain, No nausea/vomiting, No diarrhea/constipation, No hematochezia, No hematemesis. -: No dysuria, No urinary freq, No incontinence, No hematuria, No change in urinary stream. -MSK: No back pain, No muscle weakness, No radiating pain. -Skin: No itching, No rash, No lesions. -Neuro: No confusion, No numbness, No tingling, No focal weakness, No radicular pain, No syncope. -Psych: + anxiety Present on Admission - Present on Admission Any Indicators Present on Admission: No Past Patient History - Infectious Disease Hx of Infectious Diseases: None - Past Medical History & Family History Past Medical History?: No - Past Social History Smoking Status: Never Smoked - CARDIAC Hx Hypertension: Yes - PULMONARY Hx Asthma: Yes - NEUROLOGICAL Hx Seizures: Yes - HEMATOLOGICAL/ONCOLOGICAL Hx Human Immunodeficiency Virus (HIV): No - MUSCULOSKELETAL/RHEUMATOLOGICAL Hx Falls: No (denied) - GENITOURINARY/GYNECOLOGICAL Hx Sexually Transmitted Disorders: No - PSYCHIATRIC Hx Anxiety: Yes Hx Depression: Yes Hx Post Traumatic Stress Disorder: Yes Hx Substance Use: Yes (heroin (sniff)) - SURGICAL HISTORY Hx Surgeries: Yes Hx Orthopedic Surgery: Yes (bilateral knee surgery) Other/Comment: b/l knee surgery - ANESTHESIA Hx Anesthesia: Yes Hx Anesthesia Reactions: No Hx Malignant Hyperthermia: No Meds Allergies/Adverse Reactions: Allergies Allergy/AdvReac Type Severity Reaction Status Date / Time No Known Allergies Allergy Verified 12/04/18 01:31 Physical Exam - Constitutional Appears: Non-toxic, No Acute Distress - Head Exam Head Exam: ATRAUMATIC, NORMOCEPHALIC - Eye Exam Eye Exam: EOMI, PERRL - ENT Exam ENT Exam: Mucous Membranes Moist - Neck Exam Neck exam: Positive for: Full Rom, Normal Inspection - Respiratory Exam Respiratory Exam: Decreased Breath Sounds, Wheezes. absent: Chest Wall Tenderness, Clear to Auscultation Bilateral, Rales, Rhonchi Additional comments: Speaking in full sentences - Cardiovascular Exam Cardiovascular Exam: REGULAR RHYTHM, +S1, +S2 - GI/Abdominal Exam GI & Abdominal Exam: Normal Bowel Sounds, Soft. absent: Distended, Firm, Guarding, Rebound, Tenderness - Extremities Exam Extremities exam: Positive for: full ROM, normal inspection, pedal pulses present. Negative for: calf tenderness, pedal edema, tenderness - Neurological Exam Neurological exam: Alert, CN II-XII Intact, Normal Gait, Oriented x3 - Psychiatric Exam Psychiatric exam: Normal Affect, Normal Mood - Skin Skin Exam: Dry, Intact, Normal Color, Warm Results - Vital Signs Recent Vital Signs: Last Vital Signs Temp 98.1 F 12/04/18 01:27 Pulse 103 H 12/04/18 01:27 Resp 20 12/04/18 01:36 BP 143/87 12/04/18 01:27 Pulse Ox 94 L 12/04/18 03:02 - Labs Result Diagrams: 12/04/18 03:41 12/04/18 03:41 Assessment & Plan - Assessment and Plan (Free Text) Plan: 48 year old female with PMHx of asthma, seizure disorder, anxiety, depression and arthritis Asthma exacerbation CXR: Increased perihilar markings, no focal consolidation; f/u official read Duonebs Q2H PRN Solumedrol 40mg Q12H Advair 1puff Q12H Hx of arthritis Tylenol 650mg Q6H PRN Hx of seizure disorder Keppra 500mg QD Hx of anxiety/depression Zoloft 12.5mg daily PPx SCD Encourage ambulation HHD Discussed with Dr. Joan Chi, PGY-1 <Sohail Franco - Last Filed: 12/04/18 06:26> Results - Vital Signs Recent Vital Signs: Last Vital Signs Temp 97.5 F L 12/04/18 04:16 Pulse 88 12/04/18 03:30 Resp 20 12/04/18 03:30 BP 125/76 12/04/18 03:30 Pulse Ox 96 12/04/18 03:44 - Labs Result Diagrams: 12/04/18 03:41 12/04/18 03:41 Labs: Laboratory Results - last 24 hr 12/04/18 12/04/18 12/04/18 03:41 03:41 03:41 WBC 10.7 RBC 5.23 H Hgb 15.5 Hct 46.8 MCV 89.4 MCH 29.7 MCHC 33.2 RDW 14.3 Plt Count 330 MPV 7.4 Neut % (Auto) 91.5 H Lymph % (Auto) 6.7 L Lynn % (Auto) 0.7 Eos % (Auto) 0.2 Baso % (Auto) 0.9 Neut # (Auto) 9.8 H Lymph # (Auto) 0.7 L Lynn # (Auto) 0.1 Eos # (Auto) 0.0 Baso # (Auto) 0.1 Neutrophils % (Manual) 94 H Lymphocytes % (Manual) 4 L Monocytes % (Manual) 2 Platelet Estimate Normal Sodium 136 Potassium 3.9 Chloride 102 Carbon Dioxide 25 Anion Gap 13 BUN 13 Creatinine 0.6 L Est GFR ( Amer) > 60 Est GFR (Non-Af Amer) > 60 Random Glucose 155 H D Calcium 9.0 Phosphorus 2.8 Magnesium 2.1 Total Bilirubin 0.5 AST 24 ALT 13 Alkaline Phosphatase 82 Total Protein 7.3 Albumin 4.0 Globulin 3.3 Albumin/Globulin Ratio 1.2 Assessment & Plan - Date & Time Date: 12/04/18 (I have seen and examined the patient. I agree with the findings and plan of care as documented by Dr. Chi. Patient with asthma exacerbat ion. Nebs, oxygen, solumedrol, and advair. Also history of seizures. Continue home meds. Monitor for acute changes.) Time: 06:25 Attending/Attestation - Attestation I have personally seen and examined this patient.: Yes I have fully participated in the care of the patient.: Yes I have reviewed all pertinent clinical information: Yes
[2018-12-04] MEDS ORDERED: Albuterol-Ipratrop 3 mg / 0.5 (3 ml) UD INH PRN (03:10)
[2018-12-04 03:46] LABS: BASO # 0.1 K/uL (0.0-0.2); BASO % 0.9 % (0.0-2.0); EOS % 0.2 % (0.0-4.0); HEMOGLOBIN 15.5 g/dL (11.0-16.0); LYMPH # 0.7 K/uL (1.0-4.3); LYMPH % 6.7 % (20.0-40.0); MEAN CELL VOLUME 89.4 fL (81.0-99.0); MEAN CORPUSCULAR HEMOGLOBIN 29.7 pg (27.0-31.0); MEAN CORPUSCULAR HGB CONC 33.2 g/dL (33.0-37.0); MEAN PLATELET VOLUME 7.4 fL (7.2-11.7); MONO # 0.1 K/uL (0.0-0.8); MONO % 0.7 % (0.0-10.0); NEUT # 9.8 K/uL (1.8-7.0); NEUT % 91.5 % (50.0-75.0); PLATELET COUNT 330 K/uL (130-400); RBC 5.23 Mil/uL (3.80-5.20); RED CELL DISTRIBUTION WIDTH 14.3 % (11.5-14.5); WHITE BLOOD COUNT 10.7 K/uL (4.8-10.8)
[2018-12-04 04:06] LABS: ALB/GLOB RATIO 1.2 (1.0-2.1); ALT/SGPT 13 U/L (9-52); AST/SGOT 24 U/L (14-36); BLOOD UREA NITROGEN 13 mg/dL (7-17); GFR NON-AFRICAN AMERICAN > 60
[2018-12-04] MEDS ORDERED: Fluticasone-Vilanterol 100/25mcg Diskus INH SCH (04:15)
[2018-12-04] MEDS ORDERED: MethylPREDNISolone 40 mg Vial IVP SCH (04:15)
[2018-12-04 05:00] LABS: LYMPHOCYTE 4 % (20-40); MONOCYTE 2 % (0-10); NEUTROPHIL 94 % (50-75); PLATELET ESTIMATE NORMAL (NORMAL); TOTAL CELLS COUNTED 100
[2018-12-04 07:49] VITALS: BP 127/76; PULSE 89; TEMP 97.6
[2018-12-04] MEDS ORDERED: Albuterol-Ipratrop 3 mg / 0.5 (3 ml) UD INH SCH (08:00)
[2018-12-04 08:02] VITALS: O2SAT 97
--- NOTE | 2018-12-04 09:15 | CP.PCM.PN ---
<Hien Wray - Last Filed: 12/04/18 09:11> Subjective - Date & Time of Evaluation Date of Evaluation: 12/04/18 Time of Evaluation: 09:12 - Subjective Subjective: Medicine Progress Note for Dr. Vazquez's service S/E at bedside. Reports very mild sob but much improved from admission. Denies f/c, cp, n/v, constipation or diarrhea, abdominal pain, and dysuria. Objective - Vital Signs/Intake and Output Vital Signs (last 24 hours): Temp Pulse Resp BP Pulse Ox 97.6 F 89 20 127/76 97 12/04/18 07:02 12/04/18 07:02 12/04/18 07:02 12/04/18 07:02 12/04/18 08:00 - Medications Medications: Current Medications Acetaminophen (Tylenol 325mg Tab) 650 mg PO Q6 PRN PRN Reason: Pain, moderate (4-7) Last Admin: 12/04/18 04:16 Dose: 650 mg Albuterol/Ipratropium (Duoneb 3 Mg/0.5 Mg (3 Ml) Ud) 3 ml INH RQ4 [facility] Enoxaparin Sodium (Lovenox) 40 mg SC DAILY [facility] Last Admin: 12/04/18 09:07 Dose: 40 mg Fluticasone/Vilanterol (Breo Ellipta 100-25 Mcg Inh) 1 puff INH RQD [facility] Levetiracetam (Keppra) 500 mg PO DAILY [facility] Last Admin: 12/04/18 09:07 Dose: Not Given Methylprednisolone (Solu-Medrol) 40 mg IVP Q12H [facility] Last Admin: 12/04/18 05:15 Dose: 40 mg Pneumococcal Polyvalent Vaccine (Pneumovax 23 Vaccine) 0.5 ml IM .ONCE ONE Stop: 12/07/18 10:01 Sertraline HCl (Zoloft) 12.5 mg PO DAILY [facility] Last Admin: 12/04/18 09:07 Dose: 12.5 mg - Labs Labs: 12/04/18 03:41 12/04/18 03:41 - Constitutional Appears: Non-toxic, No Acute Distress - Head Exam Head Exam: NORMAL INSPECTION - Eye Exam Eye Exam: EOMI - ENT Exam ENT Exam: Mucous Membranes Dry - Respiratory Exam Respiratory Exam: Wheezes, NORMAL BREATHING PATTERN. absent: Respiratory Distress - Cardiovascular Exam Cardiovascular Exam: REGULAR RHYTHM, +S1, +S2 - GI/Abdominal Exam GI & Abdominal Exam: Soft, Normal Bowel Sounds. absent: Distended, Firm, Tender ness, Hernia - Extremities Exam Extremities Exam: Normal Inspection - Neurological Exam Neurological Exam: Alert, Awake, Oriented x3 - Psychiatric Exam Psychiatric exam: Normal Affect, Normal Mood - Skin Skin Exam: Intact, Normal Color Assessment and Plan - Assessment and Plan (Free Text) Assessment: 48 yo female w/ pmh of seizures, anxiety/depression, and asthma admitted for asthma exacerbation. Plan: Asthma exacerbation Duoneb q4 tamiko Breo Ellipta once daily IV solumedrol 40mg q12h UDS pending Troponin pending 12/03 CXR pending Hx of anxiety/depression Zoloft 12.5mg po daily Hx of seizures Keppra 500mg po daily UDS pending PPX DVT: lovenox 40mg sc daily GI: not indicated at this time PGY-1 Hien Wray Case d/w Dr. Vazquez <Yoshi Vazquez - Last Filed: 12/04/18 12:48> Objective - Vital Signs/Intake and Output Vital Signs (last 24 hours): Temp Pulse Resp BP Pulse Ox 97.6 F 89 20 127/76 97 12/04/18 07:02 12/04/18 07:02 12/04/18 07:02 12/04/18 07:02 12/04/18 08:00 - Labs Labs: 12/04/18 03:41 12/04/18 03:41 Attending/Attestation - Attestation I have personally seen and examined this patient.: Yes I have fully participated in the care of the patient.: Yes I have reviewed all pertinent clinical information, including history, physical exam and plan: Yes Notes (Text): 12/04/18 12:44 Medical attending: Patient was seen and examined by me, Agree with the above note by the resident The patient was not in any acute distress at the time we came and saw. She was not visibly short of breath, but she did have wheezing, the patient had concerning history for polysubstance abuse and we asked her about this however she denied using any drugs now Later in the day I was informed the patient left and a code echo had to be called because the patient still had the peripheral IV Yoshi Vazquez
[2018-12-04] MEDS ORDERED: Enoxaparin 40 mg Syringe SC SCH (10:00)
[2018-12-04] MEDS ORDERED: SERTRALINE 12.5 MG PO SCH (10:00)
[2018-12-07] MEDS ORDERED: Pneumococcal 23-Valent Vaccine IM ONE (10:00)
== END 2018-12-04 10:08 | disposition left against medical advice (07) ==
LOC: C.ER 01:19 → C.9E 02:45 → C.6T 03:09
PROVIDERS: ADMIT Family Medicine; ATTEND Family Medicine
DX: J45.901 Unspecified asthma with (acute) exacerbation (principal); F43.10 Post-traumatic stress disorder, unspecified; G40.909 Epilepsy, unspecified, not intractable, without status epilepticus; I10 Essential (primary) hypertension; F41.9 Anxiety disorder, unspecified
CPT/HCPCS: 36415; 80053; 83735; 84100; 84484; 85025; 99285; G0378; J1650; J2920